=== PATIENT | male | born 2000 | race Caucasian/White ===

== ENCOUNTER 2020-10-07 03:16 | Emergency (ER) | payer OTHER, SELFPAY ==
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
[2020-10-07 03:32] VITALS: BP 143/101; PULSE 85; RESP 16; TEMP 36.6; O2SAT 97
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
[2020-10-07 04:54] VITALS: BP 137/91; PULSE 77; RESP 16; O2SAT 98
== END 2020-10-07 05:35 | disposition home or self-care (01) ==
LOC: ANHED 04:33
PROVIDERS: Emergency Provider Emergency Medicine; PCP Pediatrics
DX: S60.512A Abrasion of left hand, initial encounter (principal); S60.222A Contusion of left hand, initial encounter; S60.221A Contusion of right hand, initial encounter; V40.5XXA Car driver injured in collision with pedestrian or animal in traffic accident, initial encounter
CPT/HCPCS: 73130; 99284